=== PATIENT | female | born 1960 | race Caucasian/White ===

== ENCOUNTER 2019-04-21 16:43 | Emergency (ER) | payer OTHER, SELFPAY ==
--- NOTE | ~2019-04-21 | XR_ITS ---
EXAMINATION: XR chest 2V DATE: 04/21/2019 17:43 INDICATION: Cough and shortness of breath TECHNIQUE: frontal and lateral views of the chest were obtained. COMPARISON: Chest radiograph dated 07/02/2016 FINDINGS: Mild blunting at the bilateral posterior sulci which could represent tiny pleural effusions or atelec tasis. Remainder of the lungs are clear. No pulmonary edema or pneumothorax. The cardiomediastinal si lhouette is normal. Likely cholecystectomy clips in right upper quadrant. IMPRESSION: 1. Blunting at the posterior sulci which could represent tiny pleural effusions or mild atelectasis. Reviewed, dictated and finalized at location A. HT SERVICE SPECIALIST
[2019-04-21 17:03] VITALS: BP 122/64; PULSE 66; RESP 20; TEMP 37.6; O2SAT 98
--- NOTE | 2019-04-21 17:11 | ED.GENADULT ---
HPI - General Adult General Chief complaint: Upper Respiratory Infection Stated complaint: cough/serrano/chest chamberlain Time Seen by Provider: 04/21/19 17:29 Source: patient Mode of arrival: ambulatory Limitations: no limitations History of Present Illness HPI narrative: 58-year-old female patient presents to the [facility] with complaints of cold symptoms for the past week. Patient states that the cough started about a week ago and about 3 or 4 days ago she started having fevers and flulike symptoms. Patient states she was in bed for about 3 days. Patient states she was never tested for the flu. Patient denies getting a flu shot. Patient denies any fevers today but states she has had a very consistent cough feeling a little short of breath with chest congestion. Patient states she has been taking [id number] Tylenol, Mucinex, DayQuil and NyQuil for her symptoms. Patient states she has had bronchitis before in the past. Patient denies any history of asthma or lung diseases and denies being an active smoker. Related Data Allergies Allergy/AdvReac Type Severity Reaction Status Date / Time levofloxacin Allergy Unknown Rash Verified 04/21/19 17:14 oxycodone Allergy Unknown Rash Verified 04/21/19 17:14 Penicillins Allergy Unknown Rash Verified 04/21/19 17:14 Sulfa (Sulfonamide Allergy Unknown Rash Verified 04/21/19 17:14 Antibiotics) iodine Allergy Rash Verified 04/21/19 17:15 Review of Systems Review of Systems: Narrative: CONSTITUTIONAL: Positive subjective fever, chills, body aches and sweats that has since resolved EYES: Denies visual changes, redness, or discharge. ENT: Positive rhinorrhea, congestion, denies sore throat, or otalgia. CARDIOVASCULAR: Denies chest pain, palpitations, or edema. RESPIRATORY: Positive cough with dyspnea. GASTROINTESTINAL: Denies abdominal pain, nausea, vomiting, or diarrhea. GENITOURINARY: Denies dysuria or hematuria. SKIN: Denies rash or itching. MUSCULOSKELETAL: Denies back pain, joint pain, or myalgia. NEUROLOGIC: Denies headache, numbness, or weakness. PSYCHIATRIC: Denies anxiety or depression. [facility] Family History Family History Grandparent Family history of glaucoma Family history of heart disease in male family member before age 55 Sibling Family history of rheumatoid arthritis Family history of malignant neoplasm of breast in first degree relative Mother Cerebrovascular accident Father Family history of lung cancer Social History Social History Smoking status: Never smoker Alcohol intake: current Comments At the time of my signature I agree with nursing past medical history, surgical, social, and family history. There is no relevant family history pertinent to the presenting complaint. Exam Narrative: Exam Narrative: GENERAL: Well-appearing, well-nourished, and in no acute distress. HEAD: Normocephalic, atraumatic. No tenderness noted to frontal and maxillary sinuses on palpation. EYES: PERRLA and EOMI. ENT: Nares with erythema and edema noted bilaterally, clear rhinorrhea, no epistaxis. Mucous membranes moist. Posterior pharynx with no erythema, tonsil enlargement, exudates or lesions present. Bilateral TMs are clear with no erythema or foreign bodies in the canal. NECK: Supple. No lymphadenopathy CHEST: Patient has decreased lung sounds to bilateral lower lobes more so on the left than the right.. No respiratory distress. Patient able talk in clear complete sentences. Patient does have a consistent cough noted during exam. HEART: Regular rate and rhythm. No murmur heard. Normal peripheral pulses. ABDOMEN: Soft, nontender, nondistended, normal active bowel sounds. EXTREMITIES: Normal range of motion. No edema. SKIN: Warm, dry, no rash. NEURO: No focal deficits. Alert and oriented x3. Course Reevaluation(s) Reevaluation #1: Reevaluated patient after her Duo
[2019-04-21] MEDS: ALBUTEROL SULFATE NEB 2.5 MG/3 ML INH INHALATION (17:46)
[2019-04-21] MEDS: IPRATROPIUM BR 0.02% INH SOLN 0.5 MG/2.5 ML VIAL INHALATION (17:47)
[2019-04-21 18:14] VITALS: PULSE 68; RESP 20; O2SAT 99
== END 2019-04-21 18:20 | disposition home or self-care (01) ==
PROVIDERS: Emergency Provider Nurse Practitioner Family
DX: J06.9 Acute upper respiratory infection, unspecified (principal); R06.09 Other forms of dyspnea
CPT/HCPCS: 71046; 94640; 99213; G0463

== ENCOUNTER 2019-10-10 13:11 | Outpatient (CLI) | payer OTHER, SELFPAY ==
--- NOTE | 2019-10-10 13:18 | ECHO_ITS ---
Patient Info Name: Brea Echols Age: 59 years : 1960 Gender: Female Ht: 66 in Wt: 171 lbs BSA: 1.92 m2 BP: 124 / 78 mmHg Technical Quality: Good Exam Date: 10/10/2019 1:35 PM Exam Location: [facility] Patient Status: Outpatient Admit Date: 10/10/2019 Staff Ordering Physician: Reba Rubio NP Supervisor Fruit Grading: Lana Tineo RDCS Attending Provider: Reba Rubio NP Referring Physician: Joanne DONG; Exam Type: CA echo doppler color flow Study Info Indications Z86.79 - PERSONAL HISTORY OF OTHER DISEASES OF THE CIRCULATORY Complete two-dimensional, color flow and Doppler transthoracic echocardiogram is performed. Summary 1. Left ventricular chamber dimension is normal. 2. Left ventricular systolic function is normal, estimated at 60-65%. 3. There is mildly increased left ventricular wall thickness. 4. The left ventricular diastolic function is abnormal. 5. E/e' 10 is mildly elevated. Left Ventricle E/e' 10 is mildly elevated. Left ventricular chamber dimension is normal. Left ventricular systolic function is normal, estimated at 60-65%. There is mildly increased left ventricular wall thickness. The left ventricular diastolic function is abnormal. Right Ventricle Right ventricular chamber dimension is normal. Right ventricular systolic function is normal. Left Atria Left atrial chamber dimension is normal. Right Atria Right atrial chamber dimension is normal. Aortic Valve The aortic valve is trileaflet. There is no aortic valve stenosis. There is no aortic valve regurgitation. Pulmonic Valve There is no pulmonic regurgitation. Mitral Valve There is no mitral valve stenosis. There is no mitral valve regurgitation. Tricuspid Valve There is no tricuspid valve regurgitation. Pericardium/Pleural There is no pericardial effusion. Inferior Vena Cava Normal inferior vena cava with >50% collapse upon inspiration consistent with normal right atrial pressure, 5 mmHg. Aorta The aortic root size at the sinus of Valsalva is normal. Left Ventricular Outflow Tract Name Value Normal LVOT 2D LVOT Diameter 2.0 cm LVOT Doppler LVOT Peak Gradient 4 mmHg LVOT Mean Gradient 2 mmHg LVOT VTI 23 cm LVOT VTI/AV VTI Ratio 0.9 LVOT Stroke Volume 72 ml LVOT CO 4.2 l/min LVOT CI 2.2 l/min/m2 Mitral Valve Name Value Normal MV Doppler MV Decel Real 540 cm/s2 MV PHT 50 ms MV Area (PHT) 4.4 cm2 4.0-5.0 MV Diastolic Function MV E Peak Velocity
== END 2019-10-10 13:12 | disposition home or self-care (01) ==
PROVIDERS: PCP Nurse Practitioner Family; Visit Provider Nurse Practitioner Family
DX: R42 Dizziness and giddiness (principal); Z86.79 Personal history of other diseases of the circulatory system
CPT/HCPCS: 93306

== ENCOUNTER 2019-10-24 15:00 | Outpatient (RCR) | payer OTHER, SELFPAY ==
--- NOTE | 2019-10-10 09:37 | PTOPEVAL ---
PHYSICAL THERAPY EVALUATION AND PLAN OF CARE 10-10-2019 The PT evaluation was completed for the diagnosis of vertigo. Her plan of treatment is scheduled 1x/week for 6 weeks. Thank you for referring Brea Echols to [facility] [place]. Please review, sign, date and return this plan of care SHAUN. I agree with and certify that the following plan of care is medically necessary. Referring Physician Date Attending Provider: Reba Rubio NP *PT Outpatient Evaluation Start: 10/10/19 08:33 Document 10/10/19 08:33 MANDI (Rec: 10/10/19 09:37 MANDI [id number]) Therapy Assessment Status Assessment Status Assessment Status Evaluation Outpatient Past Medical History Past Medical History Source of Past Medical History Patient Neurological History Hx Neurological Disorders No Significant History Cardiovascular History Hx Heart Murmur Yes: to have ECHO later today Respiratory History Hx Bronchitis Yes: Apr 2019,to ER for pneumonia,meds,bronchitis Gastrointestinal History Hx Appendectomy Yes Hx Cholecystectomy Yes Musculoskeletal History Hx Back Pain Yes Hx Orthopedic Surgery Yes: R foot bone spur removed; cyst in back Hx Spinal Surgery Yes: lumbar bone spur removed > 5 yr Hx Other Musculoskeletal Disorders Yes: follow with pain mgt for LBP-steroid injection Hematological History Hx Hematological Disorders No Significant History Endocrine History Hx Endocrine Disorders No Significant History Reproductive History Hx Post Menopausal Yes Evaluation Information Problem Diagnosis vertigo Onset July 2019 Previous Treatments Previous Treatments For This Problem no previous vestibular treatment Prior Level of Function Activity Level (Last 3 Months) 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
--- NOTE | 2019-10-24 15:47 | PTOPEVAL ---
PHYSICAL THERAPY DISCHARGE 10-24-2019 Mrs. Echols has received 3 PT sessions, for the diagnosis of vertigo, from October 09 to today. Brea has improved, all of the goals were achieved, therefore, she will be discharged at this time. Thank you for referring Brea Echols to [facility]. Please review, sign, date and return this discharge SHAUN. I agree with and certify that the following plan of care is medically necessary. Referring Physician Date Attending Provider: Reba Rubio NP Document 10/24/19 15:10 MANDI (Rec: 10/24/19 15:47 MANDI [id number]) Subjective Information Brea reports: doing much Query Text:As Reported By Patient/ better, taking Flonase daily, Family only had one slight dizzy spell when turned her head too fast, to the side; has been more active-painted without any problems, doing house work and no issues; feels she is ready for discharge. Dizziness Handicap Index score of 6; Pain Assessment Timing of Pain Assessment Timing of Pain Assessment Assessment Self Report Self Report Pain Level 0 Pain Score Pain Score 0: Self Report Vestibular Evaluation Vestibular Testing Vestibular Testing Comments - standing 360' to R and L 1x; ; - walking 100' with head turn to R/L and up/down 5x each - stand on foam gaze stabilization with head R/L, identify cards that were held up at 6 different positions, - pick an item up off the floor -standing gaze stabilization with head turn R/L 40 x at 75 bpm -standing eye tracking with 2 items 36 apart, 40 x at 75 bpm did not have any s/s with above activities; on foam did state little unsteady but no dizziness; Place of Service Clinic Visit: [id number]
== END 2019-10-31 14:29 | disposition home or self-care (01) ==
LOC: ANHPT 15:00
PROVIDERS: Visit Provider Nurse Practitioner Family
DX: R42 Dizziness and giddiness (principal)
CPT/HCPCS: 97110; 97161

== ENCOUNTER → 2021-03-19 09:50 | Outpatient (CLI) | payer OTHER, SELFPAY ==
[2021-03-20 14:39] LABS: SARS-CoV-2 RNA PCR Positive
== END ==
PROVIDERS: PCP Family Medicine; Visit Provider Nurse Practitioner Family
DX: U07.1 COVID-19 (principal)
CPT/HCPCS: C9803; U0003; U0005

== ENCOUNTER → 2021-07-08 15:12 | Outpatient (CLI) | payer OTHER, SELFPAY ==
--- NOTE | ~2021-07-08 | US_ITS ---
EXAMINATION: US renal BI DATE: 07/08/2021 15:34 INDICATION: Disorder of kidney and ureter TECHNIQUE: Multiple ultrasound grayscale images of the kidneys were obtained. COMPARISON: None. FINDINGS: The right kidney measures 10.0 x 4.0 x 4.4 cm. The left kidney measures 10.4 x 5.6 x 4.3 cm. The kidn eys demonstrate normal echogenicity. There is no hydronephrosis in either kidney. No stones identifi ed. The bladder is normal with bilateral ureteral jets visualized in the bladder with color Doppler. IMPRESSION: 1. Normal kidneys without hydronephrosis. Reviewed, dictated and finalized at location B.
== END ==
PROVIDERS: PCP Nurse Practitioner Family; Visit Provider Nurse Practitioner Family
DX: N28.9 Disorder of kidney and ureter, unspecified (principal)
CPT/HCPCS: 76775

== ENCOUNTER → 2022-12-10 14:02 | Outpatient (CLI) | payer OTHER, SELFPAY ==
--- NOTE | ~2022-12-10 | XR_ITS ---
XR shoulder RT min 2V 12/10/2022 14:14 INDICATION: Right shoulder pain PROCEDURE: 4 views right shoulder COMPARISON: No prior studies for comparison. FINDINGS: Fracture, dislocation or subluxation is not identified. The soft tissues appear within norm al limits. No foreign bodies are identified. IMPRESSION: 1: NO ACUTE BONE OR JOINT ABNORMALITY IDENTIFIED. Reviewed, dictated and finalized at location B.
== END ==
PROVIDERS: PCP Nurse Practitioner Family; Visit Provider Nurse Practitioner Family
DX: M25.511 Pain in right shoulder (principal)
CPT/HCPCS: 73030

== ENCOUNTER 2023-01-28 15:30 | Outpatient (CLI) | payer OTHER, SELFPAY ==
[2023-01-28 19:05] LABS: Basophils Absolute Auto 0.1 K/mm3 (0.0-0.1); Eosinophils Absolute Auto 0.3 K/mm3 (0-0.3); Eosinophils Percent Auto 3.7 % (0-4.4); Hematocrit 41.6 % (37.0-47.0); Hemoglobin 13.5 g/dL (12.0-15.0); Immature Granulocyte Absolute 0.02 K/mm3 (0.00-0.031); Immature Granulocyte Percent A 0.2 % (0-0.5); Lymphocytes Absolute Auto 2.39 K/mm3 (0.9-3.2); Lymphocytes Percent Auto 27.7 % (18.3-44.2); Mean Corpuscular HGB Conc 32.5 g/dl (32-36); Mean Corpuscular Hemoglobin 29.7 pg (26-34); Mean Corpuscular Volume 91.4 fl (80-100); Mean Platelet Volume 10.1 fl (7.4-10.4); Monocytes Absolute Auto 0.6 K/mm3 (0.1-0.6); Monocytes Percent Auto 7.1 % (2.6-8.5); Neutrophils Absolute Auto 5.2 K/mm3 (1.3-6.7); Neutrophils Percent Auto 60.3 % (45.5-73.1); Platelet Count Result 323 k/mm3 (150-375); Red Blood Count 4.55 M/mm3 (4.2-5.4); Red Cell Distribution Width 12.8 % (11.5-14.5); White Blood Count 8.6 K/mm3 (4.5-10.0)
[2023-01-28 20:18] LABS: Alanine Aminotransferase 26 U/L (6-35); Albumin Level 4.5 g/dL (3.5-5.1); Alkaline Phosphatase 91 U/L (38-126); Anion Gap 11 mmol/L (8-16); Aspartate Amino Transferase 31 U/L (14-36); Bilirubin,Total 0.4 mg/dL (0.2-1.3); Blood Urea Nitrogen 12 mg/dL (7-17); Calcium 9.7 mg/dL (8.4-10.2); Carbon Dioxide 26 mmol/L (22-30); Chloride 104 mmol/L (98-107); Cholesterol 262 mg/dL (0-200); Estimated Glomerular Filt Rate > 60; Glucose 114 mg/dL (65-110); HDL Direct 48 mg/dL; Sodium 141 mmol/L (137-145); Triglycerides 253 mg/dL (<150)
[2023-01-28 20:29] LABS: LDL Cholesterol Direct 159 mg/dL
[2023-01-31 12:06] LABS: Vitamin D 1,25 (OH)2 Total 68 pg/mL (18-72); Vitamin D2 1,25 (OH)2 <8 pg/mL; Vitamin D3 1,25 (OH)2 68 pg/mL
== END 2023-01-28 15:31 | disposition home or self-care (01) ==
LOC: ANHGOSHLAB 15:32
PROVIDERS: PCP Nurse Practitioner Family; Visit Provider Nurse Practitioner Family
DX: R01.1 Cardiac murmur, unspecified (principal); R42 Dizziness and giddiness; E55.9 Vitamin D deficiency, unspecified; Z00.00 Encounter for general adult medical examination without abnormal findings
CPT/HCPCS: 36415; 80053; 80061; 82607; 82652; 84443; 85025

== ENCOUNTER → 2023-04-18 09:54 | Outpatient (CLI) | payer OTHER, SELFPAY ==
--- NOTE | ~2023-04-18 | MR_ITS ---
EXAMINATION: MR shoulder RT wo con DATE: 04/18/2023 10:50 INDICATION: 3 months of anterior right shoulder pain radiating down the arm TECHNIQUE: Magnetic resonance imaging (MRI) of the right shoulder was performed without intravenous c ontrast. Sequences included axial PD-weighted FS FSE, coronal oblique PD-weighted FS FSE, coronal obl ique T2-weighted FS FSE, sagittal PD-weighted FS FSE, and sagittal T1-weighted SE. COMPARISON: None. FINDINGS: Coracoacromial arch: The acromion undersurface is curved in morphology (type II). The coracoacromial ligament is normal. M oderate acromioclavicular osteoarthritis with a few tiny degenerative subchondral cysts. Rotator cuff: Moderate supraspinatus and infraspinatus tendinopathy without discrete tear. The teres minor tendon i s normal. Mild to moderate subscapularis tendinopathy without tear. Normal rotator cuff muscle bulk a nd signal. Biceps tendon, glenoid labrum and glenohumeral cartilage: Mild tendinopathy without discrete tear of the intra-articular long head biceps tendon. There is a li near tear extending across the base of the 5:00-6:30 position of the inferior glenoid labrum. There i s more amorphous increased signal consistent with degeneration of the posterosuperior glenoid labrum. Normal anterosuperior sublabral foramen. There is partial thickness chondral ulceration and fissurin g with mild underlying degenerative cystlike change at the inferior glenoid. Fluid: Small glenohumeral joint effusion with proportional extension of a small amount of fluid in the long head biceps tendon sheath. No loose osteochondral bodies. Small amount of fluid in the subacromial/long bdeltoid bursa consistent with mild bursitis. Bones: Bone alignment is normal. No fracture or pathologic marrow replacing process. IMPRESSION: 1. Moderate supraspinatus, infraspinatus and subscapularis tendinopathy without discrete tear. 2. Tear of the inferior glenoid labrum and degeneration of the posterosuperior glenoid labrum. 3. Mild glenohumeral osteoarthritis with high-grade chondromalacia at the inferior glenoid. 4. Moderate acromioclavicular osteoarthritis. 5. Mild subacromial/subdeltoid bursitis. Reviewed, dictated and finalized at location A. H FIXER IMPRESSION: 1. Moderate supraspinatus, infraspinatus and subscapularis tendinopathy without discrete tear. 2. Tear of the inferior glenoid labrum and degeneration of the posterosuperior glenoid labrum. 3. Mild glenohumeral osteoarthritis with high-grade chondromalacia at the infer ior glenoid. 4. Moderate acromioclavicular osteoarthritis. 5. Mild subacromial/subdeltoid bursitis.
== END ==
PROVIDERS: PCP Nurse Practitioner Family; Visit Provider Nurse Practitioner Family
DX: M67.813 Other specified disorders of tendon, right shoulder (principal); S43.431A Superior glenoid labrum lesion of right shoulder, initial encounter; M19.011 Primary osteoarthritis, right shoulder; M75.51 Bursitis of right shoulder
CPT/HCPCS: 73221

== ENCOUNTER 2024-06-30 10:11 | Emergency (ER) | payer OTHER, SELFPAY ==
[2024-06-30 10:17] VITALS: BP 119/88; PULSE 67; RESP 20; TEMP 36.2; O2SAT 100
--- NOTE | 2024-06-30 10:41 | ED_ITS ---
HPI - General Adult General Chief complaint: Skin/Abscess/Foreign Body Stated complaint: Insect Bite Time Seen by Provider: 06/30/24 10:41 Source: patient, RN notes reviewed and old records reviewed Mode of arrival: ambulatory Limitations: no limitations History of Present Illness HPI narrative: 63-year-old female presents to the [facility] with concerns for a tick bite. Removed a yesterday. Patient's concerns she still has the head still stuck in her hip. Patient reports that she was mushroom hunting at [facility]. States that she got home and noticed that she had a tick. States that she cleaned it, removed the body of the tick Concern for a small piece of the tick still left in her left hip. Related Data Home Medications ?Medication ?Instructions ?Recorded ?Confirmed ?Last Taken ?Type Tumeric 500 mg BYMOUTH 1XD 12/08/23 03/29/24 Unknown History multivitamin (Daily Multi-Vitamin 1 tablet PO DAILY 12/08/23 03/29/24 Unknown History tablet) Allergies Allergy/AdvReac Type Severity Reaction Status Date / Time iodine Allergy Mild Rash Verified 06/30/24 10:25 levofloxacin Allergy Mild Rash Verified 06/30/24 10:25 oxycodone Allergy Mild Rash Verified 06/30/24 10:25 Penicillins Allergy Mild Rash Verified 06/30/24 10:25 Sulfa (Sulfonamide Allergy Mild Rash Verified 06/30/24 10:25 Antibiotics) Review of Systems 2 Review of Systems: All systems reviewed & are unremarkable except as noted in HPI and below Constitutional: Constitutional: Reports no additional constitutional complaints ENT: Reports system reviewed and no additional complaints, except as documented Cardiovascular: Cardiovascular: Reports no additional cardiovascular complaints, Denies chest pain and Denies dyspnea Respiratory: Respiratory: Reports no additional respiratory complaints, Denies chest congestion, Denies cough and Denies dyspnea Musculoskeletal: Musculoskeletal: Reports no additional musculoskeletal complaints Integumentary/Breasts: Skin/Breast: Reports as per HPI [facility] Past Medical History Medical History History of stroke with residual deficit (~11/2023) CVA (cerebral vascular accident) (~11/2023) Environmental allergies Hot flashes due to menopause Insomnia Recurrent herpes labialis Dyslipidemia Uterine polyp Systolic murmur Lumbar spinal stenosis Follows with pain management Surgical History Surgical History History of thrombectomy (~11/2023) right ICA thrombus History of cholecystectomy (~2001) History of foot surgery (~10/2014) Right History of lumbar surgery (~04/2014) Hx of appendectomy (~1984) Family History Family History Grandparent Family history of glaucoma Family history of heart disease in male family member before age 55 Sibling Family history of rheumatoid arthritis Family history of malignant neoplasm of breast in first degree relative Mother Cerebrovascular accident Father Family history of lung cancer Social History Social History Smoking status: Never smoker Alcohol intake: current Alcohol use details: socially Substance use: never Substance use type: does not use Lack of Transportation: No Lack of Food: Never True Current Housing: I Have Housing Concerned About Future Housing: No Difficulty Paying Gas/Electric Bills: No Difficulty Paying for Meds: No Currently Unemployed: No Education: Associate Degree Difficulty w/ Childcare or Family Care: No Living arrangements: with family Occupation/Education: occupation Gender identity (if verbalized by the patient): Female Agree to blood products: Yes Comments At the time of my signature, I reviewed and agree with the nursing past medical, surgical, social, and family history. There is no relevant family history pertinent to the patient complaint. Exam 2 Const: General: cooperative, healthy appearing, comfortable, no acute distress, well developed, alert and well nourished Nutritional Appearance: w ell nourished Orientation/consciousness: patient oriented x3 Limitations: no limitations HENMT: Head: normal to inspection Eyes: General: appearance normal, both eyes and all related structures A lignment and Position: alignment normal Neck: Neck: normal visual inspection, full ROM, no lymphadenopathy and no meningeal signs Chest: Chest palpation & inspection: normal inspection of the chest Resp: Effort & Inspection: normal respiratory effort and able to speak in complete sentences Cardio: Rate: regular rate Skin: General skin exam: normal color and no rashes or lesions noted Full body images: 1. Small area of scab versus had a tick. Able to be scraped away using 18 gauge needle. Area had been cleaned with wound cleanser saline. Removed without issue. Neuro: General: patient oriented x3, gait normal, moves all extremities and no meningeal signs Cognition (Neuro): normal cognition Speech: normal speech Gait exam (Neuro): Normal gait present Extrem: General: normal to inspection, full ROM, capillary refill normal and normal gait Psych: Appearance: grossly normal and well kempt Mental Status: mental status grossly normal Speech and movement: Normal speech and movement present and Clear speech present Affect: normal affect Attitude: cooperative Course Course Level of Care: Express Care Visit Vital Signs Vital signs: Vital Signs Temperature 97.1 F L 06/30/24 10:17 Pulse Rate 67 06/30/24 10:17 Respiratory Rate 20 06/30/24 10:17 Blood Pressure 119/88 06/30/24 10:17 Pulse Oximetry 100 06/30/24 10:17 Oxygen Delivery Room Air 06/30/24 10:17 Temperature 97.1 F L 06/30/24 10:17 Pulse Rate 67 06/30/24 10:17 Respiratory Rate 20 06/30/24 10:17 Blood Pressure 119/88 06/30/24 10:17 Pulse Oximetry 100 06/30/24 10:17 Oxygen Delivery Room Air 06/30/24 10:17 Reviewed Medical Decision Making MDM Narrative Medical decision making narrative: Patient sitting in exam room. Nontoxic, vitals are stable. Patient with concern for tick that had possibly been in place of about 12 hours. Paste was removed without issue after area cleaned Patient appropriate for outpatient treatment and follow-up Discharge instructions reviewed with patient, as well as provided in writing per nursing staff. The instructions also include specific and strict return/GO TO THE ER as well as f/u information. All questions have been answered, and the patient deny any further questions with discharge and discharge plan. Some parts of this dictation were generated by voice recognition software and may contain typographical and/or grammatical inaccuracies. Differential Diagnosis Differential Diagnosis: Tick bite duration insect bite Medical Records Medical records reviewed: Yes I reviewed the external patient's medical records. Vital Signs Vital Signs: Vital Signs Temperature 97.1 F L 06/30/24 10:17 Pulse Rate 67 06/30/24 10:17 Respiratory Rate 20 06/30/24 10:17 Blood Pressure 119/88 06/30/24 10:17 Pulse Oximetry 100 06/30/24 10:17 Oxygen Delivery Room Air 06/30/24 10:17 Temperature 97.1 F L 06/30/24 10:17 Pulse Rate 67 06/30/24 10:17 Respiratory Rate 20 06/30/24 10:17 Blood Pressure 119/88 06/30/24 10:17 Pulse Oximetry 100 06/30/24 10:17 Oxygen Delivery Room Air 06/30/24 10:17 Reviewed Lab Data Lab results reviewed: Yes I reviewed the patient's lab results. Labs: Reviewed Critical Care Time Critical Care Time Critical Care Time: No Discharge Plan Discharge Clinical Impression: Tick bite of hip Patient Disposition: Home Condition: Stable Instructions: Antibiotic Form, Lyme Disease (ED), Tick Bite (ED) Patient Language: Citizen Of [place] Prescriptions: New doxycycline monohydrate 100 mg tablet 100 mg PO ONCE Qty: 2 0RF No Action Tumeric 500 mg 500 mg BYMOUTH 1XD multivitamin [Daily Multi-Vitamin] Tablet 1 tablet PO DAILY aspirin 81 mg tablet,chewable 1 tablet PO DAILY Qty: 90 1RF trazodone 50 mg tablet 25 mg PO QHS Qty: 90 1RF atorvastatin 80 mg tablet 80 mg PO QHS Qty: 90 1RF citalopram 10 mg tablet 10 mg PO DAILY Qty: 90 1RF Follow-up/Referrals: Chelsea Castillo MD [Primary Care Provider] - 2 Weeks ([facility] follow-up) Time of Disposition: 11:03
== END 2024-06-30 11:05 | disposition home or self-care (01) ==
PROVIDERS: Emergency Provider Nurse Practitioner; PCP Family Medicine
DX: S70.262A Insect bite (nonvenomous), left hip, initial encounter (principal); Z86.73 Personal history of transient ischemic attack (TIA), and cerebral infarction without residual deficits; W57.XXXA Bitten or stung by nonvenomous insect and other nonvenomous arthropods, initial encounter
CPT/HCPCS: 99213; G0463